=== PATIENT | male | born 1960 | race Two or more races ===

== ENCOUNTER 2024-12-11 09:07 | Inpatient (IN) | payer OTHER ==
[~2024-12-11] VITALS: Ht 177.8 cm; Wt 83.5 kg
[2024-12-11] VITALS (11 sets, daily range): BP systolic 118–150; BP diastolic 75–114; PULSE 83–112; RESP 9–22; TEMP 36.6–36.6404; O2SAT 89–100
[2024-12-11 09:44] LABS: BASOPHILS % 0.3 % (0.0-2.0); EOSINOPHILS % 2.9 % (0.0-5.0); HEMATOCRIT. 46.2 % (42.0-52.0); HEMOGLOBIN. 15.7 g/dL (14.0-18.0); LYMPHOCYTES % 16.3 % (20.0-50.0); MEAN PLATELET VOLUME 6.4 fl (7.4-10.4); MONOCYTES % 5.4 % (2.0-8.0); NEUTROPHILS % 75.1 % (40.0-76.0); PLATELET 213 x1000/uL (130-400); RED BLOOD CELL COUNT 5.13 mill/uL (4.7-6.1); RED CELL DISTRIBUTION WIDTH 13.2 % (11.6-14.6)
[2024-12-11 10:00] LABS: CREATININE 0.8 mg/dL (0.6-1.3)
[2024-12-11 10:01] LABS: UREA NITROGEN BLOOD 24 mg/dL (9-23)
[2024-12-11 10:03] LABS: ASPARTATE AMINOTRANSFERASE 234 IU/L (<34); BILIRUBIN DIRECT 0.1 mg/dL (<=3.0); BILIRUBIN TOTAL 0.6 mg/dL (0.1-1.0); PROTEIN TOTAL 6.6 g/dL (6.0-8.3)
[2024-12-11] MEDS: SODIUM CHLORIDE 0.9% 1,000 ML IV ONE (10:11)
[2024-12-11] MEDS: ONDANSETRON HCL 4MG/2ML INJ IV ONE (10:12)
[2024-12-11] MEDS: FAMOTIDINE 20MG/2ML VIAL IV ONE (10:12)
[2024-12-11 10:13] LABS: TROPONIN I HIGH SENSITIVITY 121 ng/L (3.0-53)
[2024-12-11] MEDS ORDERED: HEPARIN 5000 UNITS/ML VIAL IV SCH (11:15)
[2024-12-11] MEDS ORDERED: HEPARIN 25,000 UNITS PREMIX 250 ML IV PRN ×2 (11:15→21:15)
[2024-12-11] MEDS ORDERED: HEPARIN BOLUS PRN aPTT 37-44 IV ×2 (11:30→14:00)
[2024-12-11 11:58] LABS: CREATININE 0.8 mg/dL (0.6-1.3); UREA NITROGEN BLOOD 19 mg/dL (9-23)
[2024-12-11 12:21] LABS: INR 1.1
[2024-12-11] MEDS: HEPARIN 80 UNITS/KG BOLUS IV SCH (12:48)
[2024-12-11] MEDS ORDERED: PANTOPRAZOLE SODIUM 40 MG/VIAL IV SCH (13:00)
[2024-12-11 13:37] LABS: BG BASE EXCESS -3.6 mmol/L (-2.0-3.0); BG CARBOXYHEMOGLOBIN 0.9 % (0.5-1.5); BG DEOXYHEMOGLOBIN 2.8 % (0.0-5.0); BG FLOW(L/min) 4.00 L/min; BG FRACTION INSPIRED OXYGEN 36; BG HCO3 ACT 21.1 mmol/L (21.0-28.0); BG METHEMOGLOBIN 0.3 % (0.5-1.5); BG OXYGEN SATURATION 97.2 % (94.0-98.0); BG OXYHEMOGLOBIN 96.0 % (94.0-98.0); BG PCO2 37.1 mmHg (35.0-48.0); BG PH 7.372 (7.350-7.450); BG PO2 91.9 mmHg (83.0-108.0); BG SAMPLE SITE LEFT RADIAL; BG TOTAL HEMOGLOBIN 16.2 g/dL (13.5-17.5); BG VENT MODE NASAL CANNULA
[2024-12-11] MEDS: HEPARIN 25,000 UNITS PREMIX 250 ML IV PRN (13:39)
[2024-12-11] MEDS ORDERED: IOHEXOL-350 100 ML BOTTLE ONE (14:12)
[2024-12-11] MEDS ORDERED: GUAIFENESIN 200MG/10ML SUGAR FREE UDC PO PRN (15:00)
[2024-12-11] MEDS ORDERED: HEPARIN BOLUS PRN aPTT <36 IV (15:00)
[2024-12-11] MEDS ORDERED: ZOLPIDEM TARTRATE 5MG TABLET PO PRN (15:00)
[2024-12-11] MEDS ORDERED: ACETAMINOPHEN 325MG TABLET PO PRN (15:00)
[2024-12-11] MEDS ORDERED: MAGNESIUM/ALUMINUM HYDROXIDE/SIMETHICONE 30ML UDC PO PRN (15:00)
[2024-12-11] MEDS ORDERED: DEXTROSE 50% WATER 50ML SYRINGE IV PRN (19:15)
[2024-12-11] MEDS: ATORVASTATIN CALCIUM 20MG TABLET PO SCH (20:54)
[2024-12-11] MEDS: INSULIN LISPRO 100 UNITS/ML SUBCUT SCH (20:54)
[2024-12-11] MEDS: ONDANSETRON HCL 4MG/2ML INJ IV PRN (21:03)
[2024-12-11] MEDS: BLOOD SUGAR DIAGNOSTIC STRIP TEST SCH (21:19)
[2024-12-11] MEDS: SODIUM CHLORIDE 0.9% 3ML FLUSH IVF SCH (21:25)
[2024-12-12] VITALS (42 sets, daily range): BP systolic 107–148; BP diastolic 60–122; PULSE 67–88; RESP 0–29; TEMP 36.7–37.1; O2SAT 95–100
[2024-12-12 03:40] LABS: BASOPHILS % 0.1 % (0.0-2.0); EOSINOPHILS % 0.3 % (0.0-5.0); HEMATOCRIT. 46.5 % (42.0-52.0); HEMOGLOBIN. 15.5 g/dL (14.0-18.0); LYMPHOCYTES % 7.2 % (20.0-50.0); MEAN PLATELET VOLUME 6.3 fl (7.4-10.4); MONOCYTES % 5.7 % (2.0-8.0); NEUTROPHILS % 86.7 % (40.0-76.0); PLATELET 202 x1000/uL (130-400); RED BLOOD CELL COUNT 5.20 mill/uL (4.7-6.1); RED CELL DISTRIBUTION WIDTH 13.4 % (11.6-14.6)
[2024-12-12 03:55] LABS: CREATININE 0.7 mg/dL (0.6-1.3)
[2024-12-12 03:56] LABS: UREA NITROGEN BLOOD 18 mg/dL (9-23)
[2024-12-12 03:58] LABS: PHOSPHORUS 2.8 mg/dL (2.5-4.9)
[2024-12-12] MEDS: ASPIRIN 81MG TABLET PO SCH (08:23)
[2024-12-12] MEDS: PANTOPRAZOLE SODIUM 40 MG/VIAL IV SCH (08:23)
[2024-12-12] MEDS: APIXABAN 5 MG TABLET PO SCH (13:47)
[2024-12-12] MEDS: ACETAMINOPHEN 325MG TABLET PO PRN (13:47)
[2024-12-13] VITALS: BP 129/75; PULSE 60; RESP 16; TEMP 36.8; O2SAT 95
[2024-12-13 00:29] LABS: TROPONIN I HIGH SENSITIVITY 231 ng/L (3.0-53)
[2024-12-13 04:00] VITALS: BP 122/83; PULSE 68; RESP 16; TEMP 36.9; O2SAT 95
[2024-12-13 08:00] VITALS: BP 130/79; PULSE 78; RESP 20; TEMP 36.9; O2SAT 97
[2024-12-13 08:10] LABS: BASOPHILS % 0.3 % (0.0-2.0); EOSINOPHILS % 6.1 % (0.0-5.0); HEMATOCRIT. 45.1 % (42.0-52.0); HEMOGLOBIN. 15.3 g/dL (14.0-18.0); LYMPHOCYTES % 12.8 % (20.0-50.0); MEAN PLATELET VOLUME 6.7 fl (7.4-10.4); MONOCYTES % 7.1 % (2.0-8.0); NEUTROPHILS % 73.7 % (40.0-76.0); PLATELET 201 x1000/uL (130-400); RED BLOOD CELL COUNT 5.08 mill/uL (4.7-6.1); RED CELL DISTRIBUTION WIDTH 13.2 % (11.6-14.6)
[2024-12-13 08:27] LABS: CREATININE 0.8 mg/dL (0.6-1.3)
[2024-12-13 08:28] LABS: UREA NITROGEN BLOOD 19 mg/dL (9-23)
[2024-12-13 12:00] VITALS: BP 123/112; PULSE 72; RESP 21; TEMP 36.7; O2SAT 98
[2024-12-13 16:00] VITALS: BP 126/84; PULSE 71; RESP 20; TEMP 36.6; O2SAT 97
[2024-12-13 20:00] VITALS: BP 119/82; PULSE 62; RESP 16; TEMP 37; O2SAT 95
[2024-12-14] VITALS (7 sets, daily range): BP systolic 107–132; BP diastolic 66–94; PULSE 59–81; RESP 15–21; TEMP 36.8–37.1; O2SAT 93–96
[2024-12-14] MEDS: FAMOTIDINE 20MG/2ML VIAL IV SCH (08:03)
[2024-12-14 10:59] LABS: BASOPHILS % 0.4 % (0.0-2.0); EOSINOPHILS % 7.4 % (0.0-5.0); HEMATOCRIT. 47.7 % (42.0-52.0); HEMOGLOBIN. 16.5 g/dL (14.0-18.0); LYMPHOCYTES % 18.2 % (20.0-50.0); MEAN PLATELET VOLUME 6.7 fl (7.4-10.4); MONOCYTES % 7.9 % (2.0-8.0); NEUTROPHILS % 66.1 % (40.0-76.0); PLATELET 237 x1000/uL (130-400); RED BLOOD CELL COUNT 5.39 mill/uL (4.7-6.1); RED CELL DISTRIBUTION WIDTH 13.2 % (11.6-14.6)
[2024-12-14 11:21] LABS: CREATININE 0.7 mg/dL (0.6-1.3); UREA NITROGEN BLOOD 16 mg/dL (9-23)
[2024-12-14 11:30] LABS: TRIGLYCERIDE 125.0 mg/dL (0-150)
[2024-12-14 11:31] LABS: LDL CHOLESTEROL 135.0 mg/dL (5-100)
[2024-12-14 14:37] LABS: BG BASE EXCESS 1.1 mmol/L (-2.0-3.0); BG CARBOXYHEMOGLOBIN 0.6 % (0.5-1.5); BG DEOXYHEMOGLOBIN 2.8 % (0.0-5.0); BG FRACTION INSPIRED OXYGEN 21; BG HCO3 ACT 23.8 mmol/L (21.0-28.0); BG METHEMOGLOBIN 0.3 % (0.5-1.5); BG OXYGEN SATURATION 97.2 % (94.0-98.0); BG OXYHEMOGLOBIN 96.3 % (94.0-98.0); BG PCO2 33.1 mmHg (35.0-48.0); BG PH 7.475 (7.350-7.450); BG PO2 84.8 mmHg (83.0-108.0); BG SAMPLE SITE LEFT RADIAL; BG TOTAL HEMOGLOBIN 17.3 g/dL (13.5-17.5); BG VENT MODE ROOM AIR
[2024-12-15] VITALS (17 sets, daily range): BP systolic 94–150; BP diastolic 62–133; PULSE 69–112; RESP 12–22; TEMP 36.5–37.1; O2SAT 94–100
[2024-12-15] MEDS ORDERED: SODIUM CHLORIDE 0.9% 500 ML IV ONE (12:15)
[2024-12-15] MEDS: SODIUM CHLORIDE 0.9% 1,000 ML IV SCH ×2 (12:56→18:00)
[2024-12-15] MEDS: MECLIZINE 12.5MG TABLET PO SCH (17:59)
[2024-12-16] VITALS: BP_SYST 136; BP_DIAS 112; BP_DIAS 88; PULSE 81; RESP 21; TEMP 36.6; O2SAT 97
[2024-12-16 04:00] VITALS: BP 128/96; PULSE 67; RESP 18; TEMP 36.4; O2SAT 96
[2024-12-16 08:00] VITALS: BP_SYST 110; BP_SYST 117; BP_SYST 120; BP_DIAS 69; BP_DIAS 85; BP_DIAS 86; PULSE 73; RESP 27; TEMP 36.9; O2SAT 96
[2024-12-16 12:00] VITALS: BP 95/56; PULSE 70; RESP 15; TEMP 37.2; O2SAT 96
[2024-12-16 16:00] VITALS: BP 109/73; PULSE 72; RESP 11; TEMP 37; O2SAT 96
[2024-12-16] MEDS ORDERED: APIX5TAB MT (16:07)
[2024-12-16 16:51] VITALS: BP 109/73; PULSE 72; RESP 11; TEMP 98.6
[2024-12-26] MEDS ORDERED: APIXABAN 5 MG TABLET PO SCH (09:00)
== END 2024-12-16 19:37 | disposition home or self-care (01) | DRG 280 ==
LOC: ER 09:20 → CVICU 11:16 → EDBEDREQSVC 11:17 → EDBEDREQTM 11:17 → EDBEDREQ 11:17 → ENRESERV 11:43 → 3WST 12-12 15:25
PROVIDERS: ADMIT Internal Medicine; ATTEND Internal Medicine
DX: I21.4 Non-ST elevation (NSTEMI) myocardial infarction (principal); I26.99 Other pulmonary embolism without acute cor pulmonale; J96.01 Acute respiratory failure with hypoxia; G90.89 Other disorders of autonomic nervous system; R73.9 Hyperglycemia, unspecified; E83.51 Hypocalcemia; Z79.01 Long term (current) use of anticoagulants
CPT/HCPCS: 36415; 36600; 70486; 71045; 71275; 80048; 80061; 80076; 82375; 82805; 82962; 83036; 83735; 83880; 84100; 84484; 85025; 85379; 93005; 93306; 99291; A4606; J1308; J1644; J1815; J2405; J2470; J7030; J8597; Q9967